=== PATIENT | female | born 1980 | race Two or more races ===

== ENCOUNTER 2021-06-30 20:39 | Inpatient (IN) | payer MEDICAID, OTHER ==
[~2021-06-30] VITALS: Ht 149.9 cm; Wt 90.3 kg
[2021-07-01] MEDS ORDERED: ONDANSETRON HCL 4 MG/2 ML VIAL IV ONE (01:45)
[2021-07-01] MEDS ORDERED: AZITHROMYCIN 500MG/ 250ML 250 ML IV ONE (01:45)
[2021-07-01] MEDS ORDERED: DexAMETHasone SOD PHOS 10MG/1ML VIAL INJ IV ONE (01:45)
[2021-07-01] MEDS ORDERED: ACETAMINOPHEN 500 MG TAB PO ONE (01:45)
[2021-07-01] MEDS ORDERED: cefTRIAXone 1GM/50ML D5W 50 ML IV ONE (01:45)
[2021-07-01 02:09] LABS: Basophils # (auto) 0 10 ^3/uL (0-0.2); Basophils % (auto) 0.2 % (0.0-2.0); Eosinophils # (auto) 0 10 ^3/uL (0-0.8); Mean Corpuscular Volume 75.1 fL (80.0-100.0); Monocytes # (auto) 0.3 10 ^3/uL (0-1.3); Neutrophils # (auto) 5.7 10 ^3/uL (1.6-8.6); Red Cell Distribution Width 13.4 % (11.8-14.3)
[2021-07-01 02:12] LABS: Hematocrit 45.3 % (36.0-46.0); Hemoglobin 15.2 g/dL (12.2-16.2); Lymphocytes # (auto) 0.7 10 ^3/uL (0.4-5.4); Lymphocytes % (auto) 11.1 % (10.0-50.0); Mean Corpuscular Hemoglobin 25.3 pg (28.0-32.0); Mean Corpuscular Hgb Conc. 33.6 g/dL (32.0-36.0); Monocytes % (auto) 4.1 % (0.0-12.0); Neutrophils % (auto) 84.6 % (37.0-80.0); Nucleated Red Blood Cells % 0.1 %; Red Blood Cells 6.03 10^6/uL (4.0-5.20); White Blood Cell 6.7 10^3/uL (4.4-10.8)
[2021-07-01 02:39] LABS: Albumin 3.3 g/dL (3.4-5.0); BUN/Creatinine Ratio 23.6; Calcium 8.7 mg/dL (8.5-10.1); Potassium 4.2 mmol/L (3.5-5.1)
[2021-07-01 02:41] LABS: Bilirubin, Total 0.4 mg/dL (0.2-1.0); Total Protein 6.8 g/dL (6.4-8.2)
[2021-07-01] MEDS ORDERED: diazePAM 5 MG TAB PO ONE (03:15)
[2021-07-01 03:18] LABS: Urine Bacteria NONE SEEN /hpf (None Seen); Urine Blood TRACE /uL (Negative); Urine Specific Gravity 1.048 (1.001-1.035); Urine WBC 1 /hpf (0 - 5)
[2021-07-01] MEDS ORDERED: REMDESIVIR PER PHARMACY 0 ML IV SCH (04:30)
[2021-07-01] MEDS ORDERED: MORPHINE SULFATE INJECTION 2 MG/ML SYRG IV PRN (04:30)
[2021-07-01] MEDS ORDERED: ONDANSETRON HCL 4 MG/2 ML VIAL IV PRN (04:30)
[2021-07-01] MEDS ORDERED: NITROGLYCERIN 0.4 MG SL TAB SL PRN (04:30)
[2021-07-01 05:41] LABS: Magnesium 1.9 mg/dL (1.6-2.6)
[2021-07-01 05:50] LABS: CRP High Sensitivity 8.97 mg/dL (< 0.3)
[2021-07-01] MEDS: BUDESONIDE (INHALATION) 180 MCG IH IN SCH ×2 (08:29→20:25)
[2021-07-01] MEDS: ALBUTEROL SULF HFA 90MCG INH 200DOSE IN PRN ×3 (08:29→23:02)
[2021-07-01] MEDS ORDERED: REMDESIVIR 200 MG in NS 210ml LOADING DOSE ADULT IV ONE (09:00)
[2021-07-01] MEDS: PANTOPRAZOLE 40 MG TAB PO SCH (10:00)
[2021-07-01] MEDS: ENOXAPARIN SOD 60 MG/0.6 ML SYRINGE SC SCH ×2 (10:00→22:09)
[2021-07-01] MEDS: ZINC SULFATE 220mg CAP or TAB PO SCH (10:00)
[2021-07-01] MEDS: CHOLECALCIFEROL (VITD3) 2,000 UNIT CAP/TAB PO SCH (10:00)
[2021-07-01] MEDS: IVERMECTIN 3 MG TAB PO SCH (10:00)
[2021-07-01] MEDS: ASCORBIC ACID 1,000 MG TAB PO SCH (10:00)
[2021-07-01] MEDS ORDERED: DEXTROSE (50%) 50ML SYRG IV PRN (15:45)
[2021-07-01 17:00] VITALS: BP 112/67
[2021-07-01] MEDS: ACCU-CHEK COMFORT CURVE STRIP VI SCH (17:44)
[2021-07-01] MEDS: InsuLIN REG 1unit/0.01ml Soln (100units/ml) SC SCH (17:45)
[2021-07-01] MEDS: ACETAMINOPHEN 500 MG TAB PO PRN (19:58)
[2021-07-01] MEDS: cefTRIAXone 1GM/50ML D5W 50 ML IV SCH (21:02)
[2021-07-01 22:00] VITALS: BP 118/73
[2021-07-01] MEDS ORDERED: INSULIN LANTUS (GLARGINE) 1 /0.01ml (100units/ml) SC SCH (22:00)
[2021-07-01] MEDS: AZITHROMYCIN 500MG/ 250ML 250 ML IV SCH (22:09)
[2021-07-01] MEDS: DexAMETHasone SOD PHOS 10MG/1ML VIAL INJ IV SCH (22:09)
[2021-07-02] MEDS: InsuLIN REG 1unit/0.01ml Soln (100units/ml) SC SCH ×4 (00:29→19:01)
[2021-07-02] MEDS: ACCU-CHEK COMFORT CURVE STRIP VI SCH ×4 (00:29→19:00)
[2021-07-02 05:00] VITALS: BP 107/61
[2021-07-02 06:21] LABS: Basophils # (auto) 0 10 ^3/uL (0-0.2); Basophils % (auto) 0.1 % (0.0-2.0); Eosinophils # (auto) 0 10 ^3/uL (0-0.8); Hemoglobin 13.5 g/dL (12.2-16.2); Lymphocytes # (auto) 0.6 10 ^3/uL (0.4-5.4); Monocytes # (auto) 0.3 10 ^3/uL (0-1.3)
[2021-07-02 06:22] LABS: Hematocrit 40.6 % (36.0-46.0); Lymphocytes % (auto) 12.1 % (10.0-50.0); Mean Corpuscular Hemoglobin 25.3 pg (28.0-32.0); Mean Corpuscular Hgb Conc. 33.2 g/dL (32.0-36.0); Mean Corpuscular Volume 76.1 fL (80.0-100.0); Monocytes % (auto) 5.2 % (0.0-12.0); Neutrophils % (auto) 82.6 % (37.0-80.0); Red Blood Cells 5.34 10^6/uL (4.0-5.20); Red Cell Distribution Width 13.4 % (11.8-14.3); White Blood Cell 4.9 10^3/uL (4.4-10.8)
[2021-07-02 06:39] LABS: Albumin 2.6 g/dL (3.4-5.0); BUN/Creatinine Ratio 29.2; Calcium 8.4 mg/dL (8.5-10.1); Potassium 4.6 mmol/L (3.5-5.1)
[2021-07-02 06:42] LABS: Bilirubin, Total 0.3 mg/dL (0.2-1.0)
[2021-07-02 09:30] VITALS: BP 114/59
[2021-07-02] MEDS: IVERMECTIN 3 MG TAB PO SCH (09:53)
[2021-07-02] MEDS: ENOXAPARIN SOD 60 MG/0.6 ML SYRINGE SC SCH (09:53)
[2021-07-02] MEDS: CHOLECALCIFEROL (VITD3) 2,000 UNIT CAP/TAB PO SCH (09:53)
[2021-07-02] MEDS: ASCORBIC ACID 1,000 MG TAB PO SCH (09:54)
[2021-07-02] MEDS: PANTOPRAZOLE 40 MG TAB PO SCH (09:54)
[2021-07-02] MEDS: ZINC SULFATE 220mg CAP or TAB PO SCH (09:54)
[2021-07-02] MEDS: guaiFENesin-DM 100/10mg/5ml SYR PO PRN ×3 (09:54→22:16)
[2021-07-02] MEDS: ACETAMINOPHEN 500 MG TAB PO PRN (12:18)
[2021-07-02 14:00] VITALS: BP 116/76
[2021-07-02] MEDS ORDERED: FUROSEMIDE 20 MG/2 ML VIAL IV ONE (15:30)
[2021-07-02] MEDS ORDERED: IOHEXOL 350 MG/ML 100ML IJ ONE (15:46)
[2021-07-02] MEDS: REMDESIVIR 100mg 100 MG in SODIUM CHL 0.9% 230 ML IV SCH (15:47)
[2021-07-02] MEDS: IBUPROFEN 400 MG TAB PO PRN ×2 (15:48→22:17)
[2021-07-02 17:00] VITALS: BP 114/66
[2021-07-02] MEDS: BUDESONIDE (INHALATION) 180 MCG IH IN SCH (20:27)
[2021-07-02] MEDS: ALBUTEROL SULF HFA 90MCG INH 200DOSE IN PRN (20:27)
[2021-07-02] MEDS: cefTRIAXone 1GM/50ML D5W 50 ML IV SCH (20:58)
[2021-07-02] MEDS: INSULIN LANTUS (GLARGINE) 1 /0.01ml (100units/ml) SC SCH (21:47)
[2021-07-02 22:00] VITALS: BP 106/65
[2021-07-02] MEDS: ENOXAPARIN SOD 40 MG/0.4 ML SYRINGE SC SCH (22:15)
[2021-07-02] MEDS: DexAMETHasone SOD PHOS 10MG/1ML VIAL INJ IV SCH (22:16)
[2021-07-02] MEDS: AZITHROMYCIN 500MG/ 250ML 250 ML IV SCH (22:16)
[2021-07-03] MEDS: ACCU-CHEK COMFORT CURVE STRIP VI SCH ×4 (00:10→17:48)
[2021-07-03] MEDS: InsuLIN REG 1unit/0.01ml Soln (100units/ml) SC SCH ×5 (00:25→23:32)
[2021-07-03] MEDS: guaiFENesin-DM 100/10mg/5ml SYR PO PRN ×3 (04:34→21:45)
[2021-07-03 05:00] VITALS: BP 103/61
[2021-07-03] MEDS: IBUPROFEN 400 MG TAB PO PRN ×3 (05:35→23:30)
[2021-07-03] MEDS: BUDESONIDE (INHALATION) 180 MCG IH IN SCH ×2 (07:06→20:16)
[2021-07-03] MEDS: ALBUTEROL SULF HFA 90MCG INH 200DOSE IN PRN ×2 (07:06→20:16)
[2021-07-03 08:38] LABS: Potassium 3.9 mmol/L (3.5-5.1)
[2021-07-03 08:49] LABS: Albumin 2.7 g/dL (3.4-5.0); Bilirubin, Total 0.3 mg/dL (0.2-1.0); CRP High Sensitivity 4.19 mg/dL (< 0.3); Magnesium 2.6 mg/dL (1.6-2.6); Total Protein 6.2 g/dL (6.4-8.2)
[2021-07-03 09:00] VITALS: BP 120/74
[2021-07-03] MEDS: ZINC SULFATE 220mg CAP or TAB PO SCH (10:50)
[2021-07-03] MEDS: FUROSEMIDE 20 MG/2 ML VIAL IV SCH (10:50)
[2021-07-03] MEDS: PANTOPRAZOLE 40 MG TAB PO SCH (10:50)
[2021-07-03] MEDS: ENOXAPARIN SOD 40 MG/0.4 ML SYRINGE SC SCH ×2 (10:51→21:46)
[2021-07-03] MEDS: CHOLECALCIFEROL (VITD3) 2,000 UNIT CAP/TAB PO SCH (10:51)
[2021-07-03] MEDS: IVERMECTIN 3 MG TAB PO SCH (10:51)
[2021-07-03] MEDS: ASCORBIC ACID 1,000 MG TAB PO SCH (10:51)
[2021-07-03] MEDS: ACETAMINOPHEN 500 MG TAB PO PRN (11:16)
[2021-07-03 12:56] VITALS: BP 114/73
[2021-07-03] MEDS: REMDESIVIR 100mg 100 MG in SODIUM CHL 0.9% 230 ML IV SCH (16:09)
[2021-07-03 17:00] VITALS: BP 90/55
[2021-07-03] MEDS: cefTRIAXone 1GM/50ML D5W 50 ML IV SCH (20:36)
[2021-07-03] MEDS: DexAMETHasone SOD PHOS 10MG/1ML VIAL INJ IV SCH (21:45)
[2021-07-03] MEDS: AZITHROMYCIN 500MG/ 250ML 250 ML IV SCH (21:45)
[2021-07-03 22:00] VITALS: BP 103/60
[2021-07-03] MEDS: TEMAZEPAM 15 MG CAP PO PRN (23:30)
[2021-07-03] MEDS: INSULIN LANTUS (GLARGINE) 1 /0.01ml (100units/ml) SC SCH (23:32)
[2021-07-04] VITALS (7 sets, daily range): BP systolic 104–173; BP diastolic 51–102
[2021-07-04] MEDS: guaiFENesin-DM 100/10mg/5ml SYR PO PRN ×4 (03:47→21:20)
[2021-07-04] MEDS: ACCU-CHEK COMFORT CURVE STRIP VI SCH ×5 (05:52→23:52)
[2021-07-04] MEDS: InsuLIN REG 1unit/0.01ml Soln (100units/ml) SC SCH ×4 (05:54→23:14)
[2021-07-04] MEDS: ACETAMINOPHEN 500 MG TAB PO PRN ×3 (06:01→23:49)
[2021-07-04] MEDS: ALBUTEROL SULF HFA 90MCG INH 200DOSE IN PRN ×2 (06:14→19:38)
[2021-07-04] MEDS: BUDESONIDE (INHALATION) 180 MCG IH IN SCH ×2 (06:14→19:37)
[2021-07-04 08:09] LABS: Albumin 2.5 g/dL (3.4-5.0); Calcium 7.7 mg/dL (8.5-10.1); Potassium 3.7 mmol/L (3.5-5.1)
[2021-07-04 08:12] LABS: Bilirubin, Total 0.4 mg/dL (0.2-1.0); Total Protein 5.9 g/dL (6.4-8.2)
[2021-07-04] MEDS: IVERMECTIN 3 MG TAB PO SCH (10:00)
[2021-07-04] MEDS: ASCORBIC ACID 1,000 MG TAB PO SCH (10:00)
[2021-07-04] MEDS: ZINC SULFATE 220mg CAP or TAB PO SCH (10:00)
[2021-07-04] MEDS: PANTOPRAZOLE 40 MG TAB PO SCH (10:00)
[2021-07-04] MEDS: CHOLECALCIFEROL (VITD3) 2,000 UNIT CAP/TAB PO SCH (10:00)
[2021-07-04] MEDS: FUROSEMIDE 20 MG/2 ML VIAL IV SCH (10:00)
[2021-07-04] MEDS: ENOXAPARIN SOD 40 MG/0.4 ML SYRINGE SC SCH ×2 (10:00→21:19)
[2021-07-04] MEDS: REMDESIVIR 100mg 100 MG in SODIUM CHL 0.9% 230 ML IV SCH (15:00)
[2021-07-04] MEDS: LORazepam 0.5 MG TAB PO PRN (16:57)
[2021-07-04] MEDS: DexAMETHasone SOD PHOS 10MG/1ML VIAL INJ IV SCH (21:18)
[2021-07-04] MEDS: cefTRIAXone 1GM/50ML D5W 50 ML IV SCH (21:23)
[2021-07-04] MEDS: AZITHROMYCIN 500MG/ 250ML 250 ML IV SCH (22:58)
[2021-07-04] MEDS: INSULIN LANTUS (GLARGINE) 1 /0.01ml (100units/ml) SC SCH (23:14)
[2021-07-04] MEDS: TEMAZEPAM 15 MG CAP PO PRN (23:49)
[2021-07-05] VITALS (7 sets, daily range): BP systolic 95–114; BP diastolic 42–66
[2021-07-05] MEDS: LORazepam 0.5 MG TAB PO PRN ×2 (04:10→11:42)
[2021-07-05] MEDS: ACCU-CHEK COMFORT CURVE STRIP VI SCH ×3 (05:38→16:52)
[2021-07-05] MEDS: InsuLIN REG 1unit/0.01ml Soln (100units/ml) SC SCH ×3 (05:38→18:00)
[2021-07-05] MEDS: IBUPROFEN 400 MG TAB PO PRN ×2 (06:15→16:53)
[2021-07-05] MEDS: BUDESONIDE (INHALATION) 180 MCG IH IN SCH ×2 (10:05→22:00)
[2021-07-05] MEDS: ALBUTEROL SULF HFA 90MCG INH 200DOSE IN PRN ×2 (10:06→23:34)
[2021-07-05 10:07] LABS: Basophils # (auto) 0 10 ^3/uL (0-0.2); Basophils % (auto) 0.2 % (0.0-2.0); Eosinophils # (auto) 0 10 ^3/uL (0-0.8); Eosinophils % (auto) 0.1 % (0.0-7.0); Hematocrit 40.2 % (36.0-46.0); Hemoglobin 13.5 g/dL (12.2-16.2); Lymphocytes # (auto) 0.9 10 ^3/uL (0.4-5.4); Lymphocytes % (auto) 9.6 % (10.0-50.0); Mean Corpuscular Hemoglobin 25.2 pg (28.0-32.0); Mean Corpuscular Hgb Conc. 33.5 g/dL (32.0-36.0); Mean Corpuscular Volume 75.2 fL (80.0-100.0); Monocytes # (auto) 0.3 10 ^3/uL (0-1.3); Monocytes % (auto) 3.5 % (0.0-12.0); Neutrophils % (auto) 86.6 % (37.0-80.0); Nucleated Red Blood Cells % 0.1 %; Red Blood Cells 5.35 10^6/uL (4.0-5.20); White Blood Cell 9.2 10^3/uL (4.4-10.8)
[2021-07-05 10:26] LABS: Albumin 2.5 g/dL (3.4-5.0); Calcium 8.1 mg/dL (8.5-10.1); Potassium 3.5 mmol/L (3.5-5.1)
[2021-07-05 10:34] LABS: BUN/Creatinine Ratio 31.4; Bilirubin, Total 0.4 mg/dL (0.2-1.0); CRP High Sensitivity 6.37 mg/dL (< 0.3); Total Protein 5.8 g/dL (6.4-8.2)
[2021-07-05] MEDS: PANTOPRAZOLE 40 MG TAB PO SCH (11:02)
[2021-07-05] MEDS: IVERMECTIN 3 MG TAB PO SCH (11:02)
[2021-07-05] MEDS: ZINC SULFATE 220mg CAP or TAB PO SCH (11:02)
[2021-07-05] MEDS: ASCORBIC ACID 1,000 MG TAB PO SCH (11:03)
[2021-07-05] MEDS: CHOLECALCIFEROL (VITD3) 2,000 UNIT CAP/TAB PO SCH (11:03)
[2021-07-05] MEDS: ENOXAPARIN SOD 40 MG/0.4 ML SYRINGE SC SCH ×2 (11:03→21:59)
[2021-07-05] MEDS: FUROSEMIDE 20 MG/2 ML VIAL IV SCH (11:04)
[2021-07-05] MEDS: guaiFENesin-DM 100/10mg/5ml SYR PO PRN ×3 (11:42→20:22)
[2021-07-05] MEDS: Ensure HIGH Protein Vanilla 8oz Bottle PO SCH ×3 (12:00→22:27)
[2021-07-05] MEDS: REMDESIVIR 100mg 100 MG in SODIUM CHL 0.9% 230 ML IV SCH (16:23)
[2021-07-05] MEDS: ACETAMINOPHEN 500 MG TAB PO PRN (19:33)
[2021-07-05] MEDS: DexAMETHasone SOD PHOS 10MG/1ML VIAL INJ IV SCH (21:58)
[2021-07-05] MEDS: cefTRIAXone 1GM/50ML D5W 50 ML IV SCH (21:58)
[2021-07-05] MEDS: AZITHROMYCIN 500MG/ 250ML 250 ML IV SCH (21:59)
[2021-07-05] MEDS: INSULIN LANTUS (GLARGINE) 1 /0.01ml (100units/ml) SC SCH (22:01)
[2021-07-06] MEDS: InsuLIN REG 1unit/0.01ml Soln (100units/ml) SC SCH ×4 (00:34→18:42)
[2021-07-06] MEDS: guaiFENesin-DM 100/10mg/5ml SYR PO PRN ×3 (00:35→20:03)
[2021-07-06] MEDS: IBUPROFEN 400 MG TAB PO PRN ×3 (03:40→17:31)
[2021-07-06 04:30] VITALS: BP 105/46
[2021-07-06] MEDS: ACCU-CHEK COMFORT CURVE STRIP VI SCH ×4 (06:00→17:48)
[2021-07-06 06:50] VITALS: BP 105/46
[2021-07-06 07:07] LABS: BUN/Creatinine Ratio 27.8; Potassium 3.7 mmol/L (3.5-5.1)
[2021-07-06] MEDS: BUDESONIDE (INHALATION) 180 MCG IH IN SCH ×2 (08:48→19:40)
[2021-07-06] MEDS: ALBUTEROL SULF HFA 90MCG INH 200DOSE IN PRN ×2 (08:48→20:34)
[2021-07-06 09:00] VITALS: BP 112/59
[2021-07-06] MEDS: ASCORBIC ACID 1,000 MG TAB PO SCH (10:03)
[2021-07-06] MEDS: PANTOPRAZOLE 40 MG TAB PO SCH (10:03)
[2021-07-06] MEDS: ENOXAPARIN SOD 40 MG/0.4 ML SYRINGE SC SCH ×2 (10:03→22:15)
[2021-07-06] MEDS: ZINC SULFATE 220mg CAP or TAB PO SCH (10:03)
[2021-07-06] MEDS: CHOLECALCIFEROL (VITD3) 2,000 UNIT CAP/TAB PO SCH (10:03)
[2021-07-06] MEDS: FUROSEMIDE 20 MG/2 ML VIAL IV SCH ×2 (10:25→22:19)
[2021-07-06] MEDS: Ensure HIGH Protein Vanilla 8oz Bottle PO SCH ×4 (12:00→22:22)
[2021-07-06] MEDS: LORazepam 0.5 MG TAB PO PRN ×2 (13:07→22:16)
[2021-07-06 14:45] VITALS: BP 112/59
[2021-07-06 22:00] VITALS: BP 107/69
[2021-07-06] MEDS: cefTRIAXone 1GM/50ML D5W 50 ML IV SCH (22:15)
[2021-07-06] MEDS: DexAMETHasone SOD PHOS 10MG/1ML VIAL INJ IV SCH (22:19)
[2021-07-06] MEDS: INSULIN LANTUS (GLARGINE) 1 /0.01ml (100units/ml) SC SCH (22:22)
[2021-07-07] MEDS: InsuLIN REG 1unit/0.01ml Soln (100units/ml) SC SCH ×4 (00:03→18:00)
[2021-07-07] MEDS: ACCU-CHEK COMFORT CURVE STRIP VI SCH ×4 (00:04→18:00)
[2021-07-07 02:22] LABS: Urine Bacteria FEW /hpf (None Seen); Urine Blood 3+ /uL (Negative); Urine Mucus FEW (None Seen); Urine Specific Gravity 1.019 (1.001-1.035); Urine WBC 39 /hpf (0 - 5)
[2021-07-07 05:00] VITALS: BP 96/65
[2021-07-07] MEDS: guaiFENesin-DM 100/10mg/5ml SYR PO PRN ×2 (05:30→10:50)
[2021-07-07] MEDS: Ensure HIGH Protein Vanilla 8oz Bottle PO SCH ×4 (05:54→21:45)
[2021-07-07 09:00] VITALS: BP 96/48
[2021-07-07] MEDS: ZINC SULFATE 220mg CAP or TAB PO SCH (10:50)
[2021-07-07] MEDS: PANTOPRAZOLE 40 MG TAB PO SCH (10:59)
[2021-07-07] MEDS: CHOLECALCIFEROL (VITD3) 2,000 UNIT CAP/TAB PO SCH (10:59)
[2021-07-07] MEDS: ASCORBIC ACID 1,000 MG TAB PO SCH (10:59)
[2021-07-07] MEDS: FUROSEMIDE 20 MG/2 ML VIAL IV SCH ×2 (10:59→21:45)
[2021-07-07] MEDS: ENOXAPARIN SOD 40 MG/0.4 ML SYRINGE SC SCH ×2 (11:00→21:25)
[2021-07-07] MEDS: IBUPROFEN 400 MG TAB PO PRN (11:16)
[2021-07-07 12:42] VITALS: BP 104/67
[2021-07-07 17:00] VITALS: BP 94/61
[2021-07-07] MEDS ORDERED: PROMETHAZINE W/CODEINE 5 ML ORAL SYRUP PO PRN (17:15)
[2021-07-07 18:10] VITALS: BP 94/61
[2021-07-07] MEDS: BUDESONIDE (INHALATION) 180 MCG IH IN SCH (19:14)
[2021-07-07] MEDS: ALBUTEROL SULF HFA 90MCG INH 200DOSE IN PRN (19:14)
[2021-07-07] MEDS: DexAMETHasone SOD PHOS 10MG/1ML VIAL INJ IV SCH (21:24)
[2021-07-07] MEDS: cefTRIAXone 1GM/50ML D5W 50 ML IV SCH (21:24)
[2021-07-07] MEDS: INSULIN LANTUS (GLARGINE) 1 /0.01ml (100units/ml) SC SCH (21:32)
[2021-07-07 22:00] VITALS: BP 104/49
[2021-07-07] MEDS: guaiFENesin-CODEINE Liq 5 ML UD PO PRN (22:35)
[2021-07-08] MEDS: InsuLIN REG 1unit/0.01ml Soln (100units/ml) SC SCH ×4 (00:24→17:30)
[2021-07-08] MEDS: ACCU-CHEK COMFORT CURVE STRIP VI SCH ×4 (00:24→17:30)
[2021-07-08 01:37] VITALS: BP 104/49
[2021-07-08] MEDS: IBUPROFEN 400 MG TAB PO PRN ×3 (01:48→21:16)
[2021-07-08 05:00] VITALS: BP 96/52
[2021-07-08] MEDS: FUROSEMIDE 20 MG/2 ML VIAL IV SCH ×2 (06:00→17:29)
[2021-07-08] MEDS: guaiFENesin-CODEINE Liq 5 ML UD PO PRN ×3 (06:21→22:45)
[2021-07-08] MEDS: Ensure HIGH Protein Vanilla 8oz Bottle PO SCH ×4 (06:21→21:18)
[2021-07-08 07:39] LABS: Basophils # (auto) 0 10 ^3/uL (0-0.2); Basophils % (auto) 0.2 % (0.0-2.0); Eosinophils # (auto) 0 10 ^3/uL (0-0.8); Monocytes # (auto) 0.2 10 ^3/uL (0-1.3); Neutrophils # (auto) 8.6 10 ^3/uL (1.6-8.6)
[2021-07-08 07:42] LABS: Eosinophils % (auto) 0.1 % (0.0-7.0); Hematocrit 37.6 % (36.0-46.0); Lymphocytes # (auto) 0.3 10 ^3/uL (0.4-5.4); Lymphocytes % (auto) 3.4 % (10.0-50.0); Mean Corpuscular Hemoglobin 25.5 pg (28.0-32.0); Mean Corpuscular Hgb Conc. 34.6 g/dL (32.0-36.0); Mean Corpuscular Volume 73.8 fL (80.0-100.0); Monocytes % (auto) 2.3 % (0.0-12.0); Nucleated Red Blood Cells % 0.1 %; Red Blood Cells 5.09 10^6/uL (4.0-5.20); Red Cell Distribution Width 12.8 % (11.8-14.3); White Blood Cell 9.1 10^3/uL (4.4-10.8)
[2021-07-08] MEDS: BUDESONIDE (INHALATION) 180 MCG IH IN SCH ×2 (07:49→21:17)
[2021-07-08] MEDS: ALBUTEROL SULF HFA 90MCG INH 200DOSE IN PRN ×2 (07:49→21:17)
[2021-07-08 08:32] LABS: Potassium 3.7 mmol/L (3.5-5.1)
[2021-07-08 08:46] LABS: BUN/Creatinine Ratio 30.4; Calcium 8.2 mg/dL (8.5-10.1)
[2021-07-08 09:00] VITALS: BP 105/71
[2021-07-08] MEDS: ZINC SULFATE 220mg CAP or TAB PO SCH (09:23)
[2021-07-08] MEDS: ASCORBIC ACID 1,000 MG TAB PO SCH (09:23)
[2021-07-08] MEDS: ENOXAPARIN SOD 40 MG/0.4 ML SYRINGE SC SCH ×2 (09:23→21:16)
[2021-07-08] MEDS: CHOLECALCIFEROL (VITD3) 2,000 UNIT CAP/TAB PO SCH (09:23)
[2021-07-08] MEDS: PANTOPRAZOLE 40 MG TAB PO SCH (09:23)
[2021-07-08] MEDS: INSULIN LANTUS (GLARGINE) 1 /0.01ml (100units/ml) SC SCH ×2 (11:41→21:18)
[2021-07-08 13:00] VITALS: BP 89/58
[2021-07-08] MEDS: LORazepam 0.5 MG TAB PO PRN (15:36)
[2021-07-08 17:00] VITALS: BP 96/58
[2021-07-08] MEDS: DexAMETHasone SOD PHOS 10MG/1ML VIAL INJ IV SCH (21:16)
[2021-07-08] MEDS: cefTRIAXone 1GM/50ML D5W 50 ML IV SCH (21:16)
[2021-07-08 23:19] VITALS: BP 101/55
[2021-07-09] VITALS (7 sets, daily range): BP systolic 91–105; BP diastolic 54–65
[2021-07-09] MEDS: InsuLIN REG 1unit/0.01ml Soln (100units/ml) SC SCH ×5 (00:37→23:07)
[2021-07-09] MEDS: ACCU-CHEK COMFORT CURVE STRIP VI SCH ×5 (00:41→23:16)
[2021-07-09] MEDS: MEROPENEM 1GM IVPB 100 ML IV SCH ×3 (06:00→21:35)
[2021-07-09] MEDS: ALBUTEROL SULF HFA 90MCG INH 200DOSE IN PRN ×2 (06:14→19:32)
[2021-07-09] MEDS: BUDESONIDE (INHALATION) 180 MCG IH IN SCH ×3 (06:14→20:10)
[2021-07-09] MEDS: guaiFENesin-CODEINE Liq 5 ML UD PO PRN ×3 (06:17→21:41)
[2021-07-09] MEDS: Ensure HIGH Protein Vanilla 8oz Bottle PO SCH ×4 (06:19→21:12)
[2021-07-09] MEDS: FUROSEMIDE 20 MG/2 ML VIAL IV SCH ×2 (06:19→18:00)
[2021-07-09] MEDS: ASCORBIC ACID 1,000 MG TAB PO SCH (09:08)
[2021-07-09] MEDS: ZINC SULFATE 220mg CAP or TAB PO SCH (09:08)
[2021-07-09] MEDS: PANTOPRAZOLE 40 MG TAB PO SCH (09:08)
[2021-07-09] MEDS: CHOLECALCIFEROL (VITD3) 2,000 UNIT CAP/TAB PO SCH (09:09)
[2021-07-09] MEDS: ENOXAPARIN SOD 40 MG/0.4 ML SYRINGE SC SCH ×2 (09:09→21:56)
[2021-07-09] MEDS: IBUPROFEN 400 MG TAB PO PRN ×2 (09:21→23:08)
[2021-07-09] MEDS: INSULIN LANTUS (GLARGINE) 1 /0.01ml (100units/ml) SC SCH ×2 (09:34→23:06)
[2021-07-09 09:46] LABS: Magnesium 1.7 mg/dL (1.6-2.6); Potassium 3.3 mmol/L (3.5-5.1)
[2021-07-09 09:56] LABS: CRP High Sensitivity 4.32 mg/dL (< 0.3)
[2021-07-09] MEDS: HYDROcodone-ACET 5/325MG TAB PO PRN (16:34)
[2021-07-09] MEDS ORDERED: POTASSIUM CHL 20 Meq TABLET PO ONE (18:00)
[2021-07-09] MEDS: DexAMETHasone SOD PHOS 10MG/1ML VIAL INJ IV SCH (21:35)
[2021-07-09] MEDS ORDERED: MAGNESIUM SULFATE 1GM/100ML 100 ML IV ONE (22:15)
[2021-07-09] MEDS: LORazepam 0.5 MG TAB PO PRN (23:08)
[2021-07-10] VITALS (7 sets, daily range): BP systolic 95–106; BP diastolic 56–68
[2021-07-10] MEDS: FUROSEMIDE 20 MG/2 ML VIAL IV SCH ×2 (06:00→17:38)
[2021-07-10] MEDS: ACCU-CHEK COMFORT CURVE STRIP VI SCH ×4 (06:04→23:55)
[2021-07-10] MEDS: Ensure HIGH Protein Vanilla 8oz Bottle PO SCH ×4 (06:05→21:40)
[2021-07-10] MEDS: MEROPENEM 1GM IVPB 100 ML IV SCH ×3 (06:05→21:40)
[2021-07-10] MEDS: InsuLIN REG 1unit/0.01ml Soln (100units/ml) SC SCH ×4 (06:05→23:25)
[2021-07-10] MEDS: HYDROcodone-ACET 5/325MG TAB PO PRN ×3 (06:06→20:53)
[2021-07-10] MEDS: IBUPROFEN 400 MG TAB PO PRN ×2 (06:45→11:12)
[2021-07-10] MEDS: guaiFENesin-CODEINE Liq 5 ML UD PO PRN ×4 (06:47→22:07)
[2021-07-10 07:01] LABS: INR 1.06 (0.9-1.15)
[2021-07-10 07:03] LABS: Potassium 4.1 mmol/L (3.5-5.1)
[2021-07-10] MEDS: BUDESONIDE (INHALATION) 180 MCG IH IN SCH (09:12)
[2021-07-10] MEDS: ALBUTEROL SULF HFA 90MCG INH 200DOSE IN PRN (09:12)
[2021-07-10] MEDS: ASCORBIC ACID 1,000 MG TAB PO SCH (09:22)
[2021-07-10] MEDS: ZINC SULFATE 220mg CAP or TAB PO SCH (09:22)
[2021-07-10] MEDS: CHOLECALCIFEROL (VITD3) 2,000 UNIT CAP/TAB PO SCH (09:22)
[2021-07-10] MEDS: POTASSIUM CHL 20 Meq TABLET PO SCH (09:23)
[2021-07-10] MEDS: ENOXAPARIN SOD 40 MG/0.4 ML SYRINGE SC SCH ×2 (09:23→21:40)
[2021-07-10] MEDS: PANTOPRAZOLE 40 MG TAB PO SCH (09:23)
[2021-07-10] MEDS: INSULIN LANTUS (GLARGINE) 1 /0.01ml (100units/ml) SC SCH ×2 (10:26→23:24)
[2021-07-10] MEDS: DexAMETHasone SOD PHOS 10MG/1ML VIAL INJ IV SCH (21:40)
[2021-07-10] MEDS: LORazepam 0.5 MG TAB PO PRN (22:54)
[2021-07-11] VITALS (7 sets, daily range): BP systolic 97–108; BP diastolic 61–76
[2021-07-11] MEDS: TEMAZEPAM 15 MG CAP PO PRN (02:05)
[2021-07-11] MEDS: guaiFENesin-CODEINE Liq 5 ML UD PO PRN ×2 (04:02→09:56)
[2021-07-11] MEDS: Ensure HIGH Protein Vanilla 8oz Bottle PO SCH ×4 (06:00→22:00)
[2021-07-11] MEDS: FUROSEMIDE 20 MG/2 ML VIAL IV SCH ×2 (06:22→17:54)
[2021-07-11] MEDS: InsuLIN REG 1unit/0.01ml Soln (100units/ml) SC SCH ×4 (06:23→23:39)
[2021-07-11] MEDS: MEROPENEM 1GM IVPB 100 ML IV SCH ×3 (06:28→22:18)
[2021-07-11] MEDS: ACCU-CHEK COMFORT CURVE STRIP VI SCH ×3 (06:28→17:27)
[2021-07-11] MEDS: ALBUTEROL SULF HFA 90MCG INH 200DOSE IN PRN ×2 (08:12→20:31)
[2021-07-11] MEDS: BUDESONIDE (INHALATION) 180 MCG IH IN SCH ×2 (08:12→20:31)
[2021-07-11] MEDS: POTASSIUM CHL 20 Meq TABLET PO SCH (09:11)
[2021-07-11] MEDS: ZINC SULFATE 220mg CAP or TAB PO SCH (09:11)
[2021-07-11] MEDS: CHOLECALCIFEROL (VITD3) 2,000 UNIT CAP/TAB PO SCH (09:11)
[2021-07-11] MEDS: PANTOPRAZOLE 40 MG TAB PO SCH (09:12)
[2021-07-11] MEDS: ASCORBIC ACID 1,000 MG TAB PO SCH (09:12)
[2021-07-11] MEDS: ENOXAPARIN SOD 40 MG/0.4 ML SYRINGE SC SCH ×2 (09:12→22:18)
[2021-07-11] MEDS: HYDROcodone-ACET 5/325MG TAB PO PRN ×3 (09:56→23:40)
[2021-07-11] MEDS: INSULIN LANTUS (GLARGINE) 1 /0.01ml (100units/ml) SC SCH ×2 (10:30→23:38)
[2021-07-11] MEDS ORDERED: PPN PER PHARMACY 0 ML IV SCH (13:45)
[2021-07-11 15:49] LABS: Albumin 2.3 g/dL (3.4-5.0); Calcium 8.6 mg/dL (8.5-10.1); Magnesium 2.3 mg/dL (1.6-2.6); Potassium 4.1 mmol/L (3.5-5.1)
[2021-07-11 15:55] LABS: BUN/Creatinine Ratio 32.4; Bilirubin, Total 0.4 mg/dL (0.2-1.0); Phosphorus 3.9 mg/dL (2.5-4.90); Total Protein 6.4 g/dL (6.4-8.2)
[2021-07-11] MEDS: CLINIMIX PER PHARMACY IV NR (19:47)
[2021-07-11] MEDS: DexAMETHasone SOD PHOS 10MG/1ML VIAL INJ IV SCH (22:18)
[2021-07-11] MEDS: LORazepam 0.5 MG TAB PO PRN (22:18)
[2021-07-12] VITALS (10 sets, daily range): BP systolic 101–123; BP diastolic 68–80
[2021-07-12] MEDS: ACCU-CHEK COMFORT CURVE STRIP VI SCH ×5 (00:03→23:39)
[2021-07-12] MEDS: InsuLIN REG 1unit/0.01ml Soln (100units/ml) SC SCH ×4 (05:54→23:35)
[2021-07-12] MEDS: Ensure HIGH Protein Vanilla 8oz Bottle PO SCH ×2 (06:00→12:00)
[2021-07-12] MEDS: FUROSEMIDE 20 MG/2 ML VIAL IV SCH ×2 (06:08→18:24)
[2021-07-12] MEDS: MEROPENEM 1GM IVPB 100 ML IV SCH ×3 (06:08→22:04)
[2021-07-12] MEDS ORDERED: LORazepam 2MG/ML-1ML VIAL IV ONE (09:00)
[2021-07-12 09:10] LABS: Eosinophils # (auto) 0 10 ^3/uL (0-0.8); Hemoglobin 12.5 g/dL (12.2-16.2); Lymphocytes # (auto) 0.4 10 ^3/uL (0.4-5.4); White Blood Cell 10.6 10^3/uL (4.4-10.8)
[2021-07-12 09:11] LABS: Basophils # (auto) 0.1 10 ^3/uL (0-0.2); Basophils % (auto) 0.8 % (0.0-2.0); Lymphocytes % (auto) 4.1 % (10.0-50.0); Mean Corpuscular Hemoglobin 25.4 pg (28.0-32.0); Mean Corpuscular Hgb Conc. 33.9 g/dL (32.0-36.0); Monocytes # (auto) 0.3 10 ^3/uL (0-1.3); Monocytes % (auto) 2.4 % (0.0-12.0); Neutrophils # (auto) 9.8 10 ^3/uL (1.6-8.6); Neutrophils % (auto) 92.7 % (37.0-80.0); Red Blood Cells 4.94 10^6/uL (4.0-5.20); Red Cell Distribution Width 13.1 % (11.8-14.3)
[2021-07-12 09:24] LABS: Mean Corpuscular Volume 74.9 fL (80.0-100.0)
[2021-07-12 09:26] LABS: Albumin 2.3 g/dL (3.4-5.0); BUN/Creatinine Ratio 39.1; Calcium 8.7 mg/dL (8.5-10.1); Magnesium 1.9 mg/dL (1.6-2.6); Potassium 3.9 mmol/L (3.5-5.1)
[2021-07-12] MEDS: ZINC SULFATE 220mg CAP or TAB PO SCH (09:33)
[2021-07-12] MEDS: ASCORBIC ACID 1,000 MG TAB PO SCH (09:33)
[2021-07-12] MEDS: PANTOPRAZOLE 40 MG TAB PO SCH (09:33)
[2021-07-12] MEDS: POTASSIUM CHL 20 Meq TABLET PO SCH (09:33)
[2021-07-12] MEDS: ENOXAPARIN SOD 40 MG/0.4 ML SYRINGE SC SCH ×2 (09:34→22:05)
[2021-07-12] MEDS: CHOLECALCIFEROL (VITD3) 2,000 UNIT CAP/TAB PO SCH (09:34)
[2021-07-12] MEDS: INSULIN LANTUS (GLARGINE) 1 /0.01ml (100units/ml) SC SCH ×2 (09:35→23:34)
[2021-07-12 09:36] LABS: Bilirubin, Total 0.4 mg/dL (0.2-1.0); CRP High Sensitivity 6.69 mg/dL (< 0.3); INR 1.11 (0.9-1.15); Phosphorus 3.9 mg/dL (2.5-4.90); Total Protein 7.2 g/dL (6.4-8.2)
[2021-07-12 10:10] LABS: Pre Albumin 14.5 mg/dL (20.0-40.0)
[2021-07-12] MEDS ORDERED: DEXTROSE (50%) 50ML SYRG IV SCH (12:00)
[2021-07-12] MEDS ORDERED: MAGNESIUM SULFATE 1GM/100ML 100 ML IV ONE (14:00)
[2021-07-12] MEDS: BUDESONIDE (INHALATION) 180 MCG IH IN SCH ×2 (15:06→20:28)
[2021-07-12] MEDS: ALBUTEROL SULF HFA 90MCG INH 200DOSE IN PRN ×2 (15:06→20:28)
[2021-07-12] MEDS: MORPHINE SULFATE INJECTION 2 MG/ML SYRG IV PRN ×2 (16:11→22:26)
[2021-07-12] MEDS: CLINIMIX PER PHARMACY IV NR (19:49)
[2021-07-12] MEDS ORDERED: PPN PER PHARMACY IV NR ×9 (20:00)
[2021-07-12] MEDS: DexAMETHasone SOD PHOS 10MG/1ML VIAL INJ IV SCH (22:04)
[2021-07-13 02:20] VITALS: BP 104/70
[2021-07-13] MEDS: FUROSEMIDE 20 MG/2 ML VIAL IV SCH ×2 (05:28→18:09)
[2021-07-13] MEDS: ACCU-CHEK COMFORT CURVE STRIP VI SCH ×4 (05:28→23:38)
[2021-07-13] MEDS: InsuLIN REG 1unit/0.01ml Soln (100units/ml) SC SCH ×4 (05:28→23:38)
[2021-07-13] MEDS: ALBUTEROL SULF HFA 90MCG INH 200DOSE IN PRN (05:58)
[2021-07-13] MEDS: BUDESONIDE (INHALATION) 180 MCG IH IN SCH ×2 (05:58→22:00)
[2021-07-13] MEDS: MEROPENEM 1GM IVPB 100 ML IV SCH ×3 (06:00→22:59)
[2021-07-13 08:28] LABS: INR 1.1 (0.9-1.15)
[2021-07-13 08:29] LABS: Potassium 3.6 mmol/L (3.5-5.1)
[2021-07-13 08:54] LABS: CRP High Sensitivity 4.92 mg/dL (< 0.3)
[2021-07-13] MEDS: PANTOPRAZOLE 40 MG TAB PO SCH (09:26)
[2021-07-13] MEDS: POTASSIUM CHL 20 Meq TABLET PO SCH (09:26)
[2021-07-13] MEDS: ASCORBIC ACID 1,000 MG TAB PO SCH (09:26)
[2021-07-13] MEDS: ZINC SULFATE 220mg CAP or TAB PO SCH (09:26)
[2021-07-13] MEDS: INSULIN LANTUS (GLARGINE) 1 /0.01ml (100units/ml) SC SCH ×2 (09:27→22:20)
[2021-07-13] MEDS: CHOLECALCIFEROL (VITD3) 2,000 UNIT CAP/TAB PO SCH (09:27)
[2021-07-13] MEDS: ENOXAPARIN SOD 40 MG/0.4 ML SYRINGE SC SCH ×2 (09:28→22:20)
[2021-07-13 10:14] VITALS: BP 126/76
[2021-07-13 11:23] LABS: Albumin 2.5 g/dL (3.4-5.0); Calcium 8.8 mg/dL (8.5-10.1); Potassium 3.4 mmol/L (3.5-5.1)
[2021-07-13 11:27] LABS: BUN/Creatinine Ratio 47.7; Bilirubin, Total 0.3 mg/dL (0.2-1.0); Phosphorus 3.1 mg/dL (2.5-4.90); Total Protein 7.6 g/dL (6.4-8.2)
[2021-07-13] MEDS: guaiFENesin-CODEINE Liq 5 ML UD PO PRN (12:03)
[2021-07-13 12:20] VITALS: BP 122/82
[2021-07-13] MEDS: POTASSIUM CHL 10MEQ/50ML 50 ML IV SCH ×2 (13:04→14:30)
[2021-07-13] MEDS: LORazepam 2MG/ML-1ML VIAL IV PRN ×2 (13:04→18:31)
[2021-07-13 16:40] VITALS: BP 115/72
[2021-07-13 20:00] VITALS: BP 109/73
[2021-07-13] MEDS ORDERED: PPN PER PHARMACY IV NR ×8 (20:00)
[2021-07-13 22:00] VITALS: BP 109/73
[2021-07-13] MEDS: TEMAZEPAM 15 MG CAP PO PRN (22:00)
[2021-07-13] MEDS: DexAMETHasone SOD PHOS 10MG/1ML VIAL INJ IV SCH (22:18)
[2021-07-14] MEDS: LORazepam 2MG/ML-1ML VIAL IV PRN (00:10)
[2021-07-14] MEDS ORDERED: dilTIAZem 25 MG/5 ML VIAL IV ONE (03:00)
[2021-07-14 05:00] VITALS: BP 103/65
[2021-07-14] MEDS: FUROSEMIDE 20 MG/2 ML VIAL IV SCH ×2 (05:17→17:55)
[2021-07-14] MEDS: InsuLIN REG 1unit/0.01ml Soln (100units/ml) SC SCH ×3 (05:19→17:55)
[2021-07-14] MEDS: ACCU-CHEK COMFORT CURVE STRIP VI SCH ×3 (05:19→17:54)
[2021-07-14] MEDS: MEROPENEM 1GM IVPB 100 ML IV SCH ×3 (05:24→22:25)
[2021-07-14 09:00] VITALS: BP 123/83
[2021-07-14] MEDS: ALBUTEROL SULF HFA 90MCG INH 200DOSE IN PRN (09:18)
[2021-07-14] MEDS: BUDESONIDE (INHALATION) 180 MCG IH IN SCH ×2 (09:18→22:00)
[2021-07-14 09:41] LABS: Basophils # (auto) 0.1 10 ^3/uL (0-0.2); Basophils % (auto) 0.5 % (0.0-2.0); Eosinophils # (auto) 0.1 10 ^3/uL (0-0.8); Hemoglobin 13.4 g/dL (12.2-16.2); Monocytes # (auto) 0.4 10 ^3/uL (0-1.3); Monocytes % (auto) 2.6 % (0.0-12.0); White Blood Cell 14.5 10^3/uL (4.4-10.8)
[2021-07-14 09:43] LABS: Albumin 2.5 g/dL (3.4-5.0); BUN/Creatinine Ratio 39.2; Magnesium 1.9 mg/dL (1.6-2.6); Potassium 3.8 mmol/L (3.5-5.1)
[2021-07-14 09:45] LABS: Bilirubin, Total 0.5 mg/dL (0.2-1.0); Phosphorus 2.9 mg/dL (2.5-4.90); Total Protein 7.4 g/dL (6.4-8.2)
[2021-07-14 09:48] LABS: Eosinophils % (auto) 0.8 % (0.0-7.0); Hematocrit 40.3 % (36.0-46.0); Lymphocytes # (auto) 0.9 10 ^3/uL (0.4-5.4); Lymphocytes % (auto) 6.1 % (10.0-50.0); Mean Corpuscular Hemoglobin 25.3 pg (28.0-32.0); Mean Corpuscular Hgb Conc. 33.3 g/dL (32.0-36.0); Mean Corpuscular Volume 75.8 fL (80.0-100.0); Neutrophils # (auto) 13.1 10 ^3/uL (1.6-8.6); Nucleated Red Blood Cells % 0.2 %; Red Blood Cells 5.32 10^6/uL (4.0-5.20); Red Cell Distribution Width 13.1 % (11.8-14.3)
[2021-07-14] MEDS: guaiFENesin-CODEINE Liq 5 ML UD PO PRN ×2 (10:10→17:56)
[2021-07-14] MEDS: ZINC SULFATE 220mg CAP or TAB PO SCH (10:10)
[2021-07-14] MEDS: PANTOPRAZOLE 40 MG TAB PO SCH (10:10)
[2021-07-14] MEDS: POTASSIUM CHL 20 Meq TABLET PO SCH (10:10)
[2021-07-14] MEDS: ENOXAPARIN SOD 40 MG/0.4 ML SYRINGE SC SCH ×2 (10:11→22:26)
[2021-07-14] MEDS: CHOLECALCIFEROL (VITD3) 2,000 UNIT CAP/TAB PO SCH (10:11)
[2021-07-14] MEDS: ASCORBIC ACID 1,000 MG TAB PO SCH (10:11)
[2021-07-14] MEDS: INSULIN LANTUS (GLARGINE) 1 /0.01ml (100units/ml) SC SCH ×2 (11:55→22:26)
[2021-07-14 13:03] VITALS: BP 118/84
[2021-07-14 17:00] VITALS: BP 112/76
[2021-07-14] MEDS ORDERED: PPN PER PHARMACY IV NR ×10 (20:00)
[2021-07-14] MEDS: TEMAZEPAM 15 MG CAP PO PRN (20:00)
[2021-07-14 22:00] VITALS: BP 100/63
[2021-07-14] MEDS: DexAMETHasone SOD PHOS 10MG/1ML VIAL INJ IV SCH (22:25)
[2021-07-15] MEDS: ACCU-CHEK COMFORT CURVE STRIP VI SCH ×4 (00:51→17:24)
[2021-07-15] MEDS: InsuLIN REG 1unit/0.01ml Soln (100units/ml) SC SCH ×4 (00:52→17:24)
[2021-07-15 05:00] VITALS: BP 112/70
[2021-07-15] MEDS: FUROSEMIDE 20 MG/2 ML VIAL IV SCH ×2 (07:24→17:25)
[2021-07-15] MEDS: MEROPENEM 1GM IVPB 100 ML IV SCH ×3 (07:35→23:06)
[2021-07-15 08:00] VITALS: BP 109/62
[2021-07-15 08:41] LABS: Potassium 4.1 mmol/L (3.5-5.1)
[2021-07-15] MEDS: guaiFENesin-CODEINE Liq 5 ML UD PO PRN ×3 (08:46→20:13)
[2021-07-15] MEDS: POTASSIUM CHL 20 Meq TABLET PO SCH (08:47)
[2021-07-15] MEDS: CHOLECALCIFEROL (VITD3) 2,000 UNIT CAP/TAB PO SCH (08:47)
[2021-07-15] MEDS: ASCORBIC ACID 1,000 MG TAB PO SCH (08:47)
[2021-07-15] MEDS: PANTOPRAZOLE 40 MG TAB PO SCH (08:47)
[2021-07-15] MEDS: ZINC SULFATE 220mg CAP or TAB PO SCH (08:47)
[2021-07-15] MEDS: ENOXAPARIN SOD 40 MG/0.4 ML SYRINGE SC SCH ×2 (08:48→22:41)
[2021-07-15 08:55] LABS: Albumin 2.6 g/dL (3.4-5.0); BUN/Creatinine Ratio 44.2; Bilirubin, Total 0.5 mg/dL (0.2-1.0); Calcium 8.9 mg/dL (8.5-10.1); Magnesium 2.9 mg/dL (1.6-2.6); Phosphorus 4.3 mg/dL (2.5-4.90); Total Protein 7.6 g/dL (6.4-8.2)
[2021-07-15 11:58] VITALS: BP 98/68
[2021-07-15] MEDS: INSULIN LANTUS (GLARGINE) 1 /0.01ml (100units/ml) SC SCH ×2 (12:02→22:00)
[2021-07-15] MEDS: BUDESONIDE (INHALATION) 180 MCG IH IN SCH ×2 (15:30→19:14)
[2021-07-15] MEDS: ALBUTEROL SULF HFA 90MCG INH 200DOSE IN PRN ×2 (15:31→19:14)
[2021-07-15 16:00] VITALS: BP 110/64
[2021-07-15] MEDS: LORazepam 2MG/ML-1ML VIAL IV PRN (17:23)
[2021-07-15 20:00] VITALS: BP 117/69
[2021-07-15] MEDS ORDERED: PPN PER PHARMACY IV NR ×10 (20:00)
[2021-07-15 22:00] VITALS: BP 117/69
[2021-07-15] MEDS: DexAMETHasone SOD PHOS 10MG/1ML VIAL INJ IV SCH (22:41)
[2021-07-15] MEDS: ACETAMINOPHEN 500 MG TAB PO PRN (23:07)
[2021-07-16] VITALS (28 sets, daily range): BP systolic 28–178; BP diastolic 10–152
[2021-07-16] MEDS: ACCU-CHEK COMFORT CURVE STRIP VI SCH ×5 (00:36→23:52)
[2021-07-16] MEDS: InsuLIN REG 1unit/0.01ml Soln (100units/ml) SC SCH ×5 (00:40→23:53)
[2021-07-16] MEDS: MORPHINE SULFATE INJECTION 2 MG/ML SYRG IV PRN ×2 (00:54→13:48)
[2021-07-16] MEDS: MEROPENEM 1GM IVPB 100 ML IV SCH ×3 (05:54→22:59)
[2021-07-16] MEDS: FUROSEMIDE 20 MG/2 ML VIAL IV SCH ×2 (06:16→17:55)
[2021-07-16 08:05] LABS: Basophils # (auto) 0 10 ^3/uL (0-0.2); Basophils % (auto) 0.4 % (0.0-2.0); Eosinophils # (auto) 0 10 ^3/uL (0-0.8); Eosinophils % (auto) 0.2 % (0.0-7.0); Hemoglobin 12.6 g/dL (12.2-16.2); Lymphocytes # (auto) 0.5 10 ^3/uL (0.4-5.4); Lymphocytes % (auto) 4.4 % (10.0-50.0); Mean Corpuscular Hemoglobin 25.1 pg (28.0-32.0); Mean Corpuscular Hgb Conc. 33.1 g/dL (32.0-36.0); Monocytes # (auto) 0.2 10 ^3/uL (0-1.3); Monocytes % (auto) 1.7 % (0.0-12.0); Neutrophils # (auto) 10.9 10 ^3/uL (1.6-8.6); Neutrophils % (auto) 93.3 % (37.0-80.0); Nucleated Red Blood Cells % 0.2 %; Red Blood Cells 5.02 10^6/uL (4.0-5.20); Red Cell Distribution Width 13.4 % (11.8-14.3); White Blood Cell 11.7 10^3/uL (4.4-10.8)
[2021-07-16 08:06] LABS: Mean Corpuscular Volume 75.8 fL (80.0-100.0)
[2021-07-16 08:25] LABS: Potassium 4.1 mmol/L (3.5-5.1)
[2021-07-16 08:47] LABS: Albumin 2.5 g/dL (3.4-5.0); BUN/Creatinine Ratio 62.9; Bilirubin, Total 0.4 mg/dL (0.2-1.0); CRP High Sensitivity 4.94 mg/dL (< 0.3); Calcium 8.9 mg/dL (8.5-10.1); Magnesium 1.8 mg/dL (1.6-2.6); Phosphorus 3.6 mg/dL (2.5-4.90); Total Protein 7.2 g/dL (6.4-8.2)
[2021-07-16] MEDS: ASCORBIC ACID 1,000 MG TAB PO SCH (09:53)
[2021-07-16] MEDS: PANTOPRAZOLE 40 MG TAB PO SCH (09:53)
[2021-07-16] MEDS: CHOLECALCIFEROL (VITD3) 2,000 UNIT CAP/TAB PO SCH (09:54)
[2021-07-16] MEDS: ENOXAPARIN SOD 40 MG/0.4 ML SYRINGE SC SCH ×2 (09:54→22:59)
[2021-07-16] MEDS: INSULIN LANTUS (GLARGINE) 1 /0.01ml (100units/ml) SC SCH ×2 (09:56→23:52)
[2021-07-16] MEDS: BUDESONIDE (INHALATION) 180 MCG IH IN SCH ×2 (10:00→22:00)
[2021-07-16] MEDS: ZINC SULFATE 220mg CAP or TAB PO SCH (12:11)
[2021-07-16] MEDS: guaiFENesin-CODEINE Liq 5 ML UD PO PRN (12:11)
[2021-07-16] MEDS: ACETAMINOPHEN 500 MG TAB PO PRN (12:12)
[2021-07-16] MEDS: POTASSIUM CHL 20 Meq TABLET PO SCH (12:12)
[2021-07-16] MEDS ORDERED: SUCCINYLCHOLINE CHLORIDE 20 MG/ML 10ML VIAL IV ONE (18:11)
[2021-07-16] MEDS ORDERED: ETOMIDATE (2MG/ML) 20ML VIAL IV ONE (18:11)
[2021-07-16] MEDS ORDERED: ROCURONIUM 10MG/ML 10ML VIAL IV ONE ×2 (18:11→20:03)
[2021-07-16] MEDS: LORazepam 2MG/ML-1ML VIAL IV PRN (18:20)
[2021-07-16] MEDS ORDERED: MIDAZOLAM DRIP 50 mg/50mL 50 ML IV ONE (18:37)
[2021-07-16] MEDS ORDERED: PROPOFOL 100 ML IV ONE (18:39)
[2021-07-16] MEDS ORDERED: NOREPINEPHRINE 8 MG/250ML KIT 250 ML IV ONE (19:42)
[2021-07-16] MEDS: NOREPINEPHRINE BITARTRATE 32 MG in SODIUM CHL 0.9% 218 ML IV SCH (19:45)
[2021-07-16] MEDS: fentaNYL Drip 2500mCg/250mlNS 250 ML IV SCH (20:00)
[2021-07-16] MEDS ORDERED: PPN PER PHARMACY IV NR ×10 (20:00)
[2021-07-16] MEDS ORDERED: ROCURONIUM BROMIDE 1,000 MG in D5W 5% 150 ML IV SCH (20:00)
[2021-07-16] MEDS ORDERED: NOREPINEPHRINE 8 MG/250ML KIT 250 ML IV SCH (20:00)
[2021-07-16] MEDS ORDERED: ROCURONIUM 10MG/ML 10ML VIAL IV PRN (20:00)
[2021-07-16] MEDS ORDERED: PHENYLEPHRINE IV 250 ML IV ONE (20:16)
[2021-07-16] MEDS ORDERED: SODIUM BICARBONATE 8.4 % INJ 50ML VIAL IV ONE ×2 (20:26→20:30)
[2021-07-16] MEDS ORDERED: PHENYLEPHRINE IV 250 ML IV SCH (20:30)
[2021-07-16] MEDS: PROPOFOL 100 ML IV SCH (21:12)
[2021-07-16] MEDS: MIDAZOLAM DRIP 50 mg/50mL 50 ML IV SCH (21:13)
[2021-07-16] MEDS: PHENYLEPHRINE INJ 80 MG in SODIUM CHL 0.9% 242 ML IV SCH (21:30)
[2021-07-16] MEDS: VASOPRESSIN 50 UNITS in D5W 5% 247.5 ML IV SCH (22:20)
[2021-07-16] MEDS ORDERED: EPINEPHrine HCL 250 ML IV ONE (22:22)
[2021-07-16] MEDS ORDERED: EPINEPHrine HCL 250 ML IV SCH (22:45)
[2021-07-16] MEDS: DexAMETHasone SOD PHOS 10MG/1ML VIAL INJ IV SCH (23:51)
[2021-07-17] VITALS (8 sets, daily range): BP systolic 28–147; BP diastolic 10–76
[2021-07-17] MEDS ORDERED: ACETAMINOPHEN IV 1000 MG/100ML (10MG/ML) IV ONE
[2021-07-17] MEDS: PROPOFOL 100 ML IV SCH ×3 (01:40→10:29)
[2021-07-17] MEDS: MIDAZOLAM DRIP 50 mg/50mL 50 ML IV SCH ×3 (01:40→10:29)
[2021-07-17 05:04] LABS: Mean Corpuscular Hgb Conc. 31.7 g/dL (32.0-36.0)
[2021-07-17 05:08] LABS: Hematocrit 40.9 % (36.0-46.0); Mean Corpuscular Hemoglobin 25.1 pg (28.0-32.0); Mean Corpuscular Volume 79.2 fL (80.0-100.0); Red Blood Cells 5.16 10^6/uL (4.0-5.20); Red Cell Distribution Width 13.1 % (11.8-14.3)
[2021-07-17 05:12] LABS: White Blood Cell 41.2 10^3/uL (4.4-10.8)
[2021-07-17 05:14] LABS: Basophils % (manual) 0 (0.0-2.0); Blast Cells 0; Eosinophils % (manual) 0 (0-7); Myelocytes % 0; Promyelocytes % 0; Reactive Lymphocytes 0
[2021-07-17 05:36] LABS: Potassium 5.2 mmol/L (3.5-5.1)
[2021-07-17 06:03] LABS: BUN/Creatinine Ratio 19.1; Bilirubin, Total 1.1 mg/dL (0.2-1.0); Calcium 7.4 mg/dL (8.5-10.1); Phosphorus 6.2 mg/dL (2.5-4.90); Total Protein 6.2 g/dL (6.4-8.2)
[2021-07-17] MEDS: FUROSEMIDE 20 MG/2 ML VIAL IV SCH ×2 (06:14→18:00)
[2021-07-17] MEDS: MEROPENEM 1GM IVPB 100 ML IV SCH (06:15)
[2021-07-17] MEDS: ACCU-CHEK COMFORT CURVE STRIP VI SCH ×2 (06:25→13:08)
[2021-07-17] MEDS: PHENYLEPHRINE INJ 80 MG in SODIUM CHL 0.9% 242 ML IV SCH ×2 (06:34→12:16)
[2021-07-17] MEDS: InsuLIN REG 1unit/0.01ml Soln (100units/ml) SC SCH ×2 (06:36→13:09)
[2021-07-17] MEDS: fentaNYL Drip 2500mCg/250mlNS 250 ML IV SCH (06:41)
[2021-07-17] MEDS ORDERED: SODIUM ZIRCONIUM CYCL 10 GM PAK PO ONE (07:15)
[2021-07-17] MEDS: VASOPRESSIN 50 UNITS in D5W 5% 247.5 ML IV SCH (08:01)
[2021-07-17] MEDS ORDERED: SODIUM CHLORIDE 0.9% 2,000 ML IV ONE (09:15)
[2021-07-17] MEDS ORDERED: VANCOMYCIN PER PHARMACY 0 MG IV SCH (09:15)
[2021-07-17] MEDS: INSULIN LANTUS (GLARGINE) 1 /0.01ml (100units/ml) SC SCH (10:00)
[2021-07-17] MEDS: POTASSIUM CHL 20 Meq TABLET PO SCH (10:00)
[2021-07-17] MEDS ORDERED: VANCOMYCIN 750mg/250ml 250 ML IV SCH (10:00)
[2021-07-17 10:14] LABS: Lactic Acid w/Reflex 8.1 mmol/L (0.4-2.0)
[2021-07-17] MEDS: PANTOPRAZOLE 40 MG TAB PO SCH (10:23)
[2021-07-17] MEDS: ZINC SULFATE 220mg CAP or TAB PO SCH (10:23)
[2021-07-17] MEDS: ASCORBIC ACID 1,000 MG TAB PO SCH (10:23)
[2021-07-17] MEDS: ENOXAPARIN SOD 40 MG/0.4 ML SYRINGE SC SCH (10:24)
[2021-07-17] MEDS: CHOLECALCIFEROL (VITD3) 2,000 UNIT CAP/TAB PO SCH (10:24)
[2021-07-17 11:53] LABS: INR 2.36 (0.9-1.15); Partial Thromboplastin Time 41.8 sec (23.6-33.0)
[2021-07-17 12:29] LABS: Band Neutrophils % (manual) 11; Lymphocytes % (manual) 4 (10.0-50.0); Metamyelocytes % 1; Monocytes % (manual) 3 (0-12)
[2021-07-17] MEDS: NOREPINEPHRINE BITARTRATE 32 MG in SODIUM CHL 0.9% 218 ML IV SCH (13:29)
[2021-07-17] MEDS ORDERED: LIDOCAINE 1% (LOCAL ANESTH.) PF 5ml SDV ID ONE (14:00)
[2021-07-17] MEDS ORDERED: MEROPENEM 1GM IVPB 100 ML IV SCH ×2 (18:00)
[2021-07-17] MEDS ORDERED: SODIUM CHLOR 0.9% PF (SALINE LOCK) 10ML VIAL/SYR IV SCH (22:00)
[2021-07-17] MEDS ORDERED: DEXTROSE (50%) 50ML SYRG IV ONE (23:03)
[2021-07-17] MEDS ORDERED: SODIUM BICARBONATE 8.4% INJ 50ML SYRINGE IV ONE (23:03)
[2021-07-17] MEDS ORDERED: EPINEPHrine HCL 1 MG/10 ML SYRG IV ONE (23:03)
[2021-07-17] MEDS ORDERED: CALCIUM CHLOR(10%) 100MG/ML 10ML SYRINGE IV ONE (23:03)
[2021-07-17] MEDS ORDERED: AMIODARONE HCL (50 MG/ ML) 3 ML VIAL IV ONE (23:03)
== END 2021-07-17 23:04 | DRG 720 ==
LOC: ER 20:42 → TELE 07-01 04:28 → TELE-WESTW 07-01 16:16 → ICU WEST 07-16 18:33
PROVIDERS: ADMIT Nurse Practitioner; ATTEND Internal Medicine Pulmonary Disease
PROC: XW033E5 Introduction of Remdesivir Anti-infective into Peripheral Vein, Percutaneous Approach, New Technology Group 5 (ICD-10-PCS; 2021-07-01)
PROC: 5A0935A Assistance with Respiratory Ventilation, Less than 24 Consecutive Hours, High Flow/Velocity Cannula (ICD-10-PCS; 2021-07-03)
PROC: 5A0935A Assistance with Respiratory Ventilation, Less than 24 Consecutive Hours, High Flow/Velocity Cannula (ICD-10-PCS; 2021-07-04)
PROC: 5A09357 Assistance with Respiratory Ventilation, Less than 24 Consecutive Hours, Continuous Positive Airway Pressure (ICD-10-PCS; 2021-07-04)
PROC: 5A0955A Assistance with Respiratory Ventilation, Greater than 96 Consecutive Hours, High Flow/Velocity Cannula (ICD-10-PCS; 2021-07-05)
PROC: 5A09357 Assistance with Respiratory Ventilation, Less than 24 Consecutive Hours, Continuous Positive Airway Pressure (ICD-10-PCS; 2021-07-05)
PROC: 5A09457 Assistance with Respiratory Ventilation, 24-96 Consecutive Hours, Continuous Positive Airway Pressure (ICD-10-PCS; 2021-07-10)
PROC: 5A0935A Assistance with Respiratory Ventilation, Less than 24 Consecutive Hours, High Flow/Velocity Cannula (ICD-10-PCS; 2021-07-14)
PROC: 5A09357 Assistance with Respiratory Ventilation, Less than 24 Consecutive Hours, Continuous Positive Airway Pressure (ICD-10-PCS; 2021-07-14)
PROC: 5A0935A Assistance with Respiratory Ventilation, Less than 24 Consecutive Hours, High Flow/Velocity Cannula (ICD-10-PCS; 2021-07-15)
PROC: 5A09357 Assistance with Respiratory Ventilation, Less than 24 Consecutive Hours, Continuous Positive Airway Pressure (ICD-10-PCS; 2021-07-15)
PROC: 5A1935Z Respiratory Ventilation, Less than 24 Consecutive Hours (ICD-10-PCS; principal; 2021-07-16)
PROC: 0BH17EZ Insertion of Endotracheal Airway into Trachea, Via Natural or Artificial Opening (ICD-10-PCS; 2021-07-16)
DX: A41.89 Other specified sepsis (principal); J96.21 Acute and chronic respiratory failure with hypoxia; J12.82 Pneumonia due to coronavirus disease 2019; U07.1 COVID-19; R65.21 Severe sepsis with septic shock; D89.839 Cytokine release syndrome, grade unspecified; N17.9 Acute kidney failure, unspecified; J98.11 Atelectasis; Z68.41 Body mass index [BMI] 40.0-44.9, adult; E66.01 Morbid (severe) obesity due to excess calories; E55.9 Vitamin D deficiency, unspecified; E11.9 Type 2 diabetes mellitus without complications; K76.0 Fatty (change of) liver, not elsewhere classified
CPT/HCPCS: 36415; 36569; 36600; 71045; 71275; 80048; 80053; 81001; 82040; 82306; 82728; 82805; 82962; 83036; 83605; 83615; 83735; 84100; 84132; 84443; 84478; 84702; 85007; 85025; 85027; 85379; 85610; 85730; 86141; 87040; 87070; 87077; 87086; 87186; 87205; 87426; 93005; 93970; 94002; 94003; 94640; 94660; 96365; 96367; 96375; G0378; J0131; J0171; J0330; J0696; J1100; J1815; J2185; J2250; J2405; J2704; J7060; J7131